=== PATIENT | female | born 1965 | race Caucasian/White ===

== ENCOUNTER → 2019-01-27 | Outpatient (CLI) | payer BC ==
--- NOTE | 2019-01-27 17:15 | MR ---
EXAMINATION TYPE: MR lumbar spine wo con DATE OF EXAM: 01/27/2019 COMPARISON: None HISTORY: Lumbago CONTRAST: 0 mL intravenous Gadavist. TECHNIQUE: Multiplanar, multisequence images of the lumbar spine were acquired. FINDINGS: L5-S1: There is a grade 1 spondylolisthesis of L5 anterior on S1. Disc space narrowing is present. Di sc desiccation is present. Disc uncovering has some central focal bulging with mild anterior thecal s ac compression. Disc uncovering has anterior thecal sac compression. No AP spinal canal stenosis is p resent. There is severe right foraminal stenosis with suspected impingement due to disc bulging. Mei re left foraminal stenosis is present likely with disc material contacting the exiting nerve root. L4-L5: Mild facet hypertrophy is present greater on the right with some posterior lateral thecal sac compression. Minimal disc bulge has anterior thecal sac contact. No AP spinal canal stenosis is prese nt. Neural foramen are patent. In the sagittal plane Schmorl's node formation may be developing withi n the inferior endplate compression and extension of disc material superiorly. There is signal abnorm ality within the vertebral body. Clinical consideration for early discitis is recommended. L3-L4: No significant disc bulge or disc herniation. No spinal canal stenosis. No foraminal stenosi s. L2-L3: No significant disc bulge or disc herniation. No spinal canal stenosis. No foraminal stenosi s. . L1-L2: No significant disc bulge or disc herniation. No spinal canal stenosis. No foraminal stenosi s. . T12-L1: No significant disc bulge or disc herniation. No spinal canal stenosis. No foraminal stenos is. . IMPRESSION: 1. Grade 1 spondylolisthesis with disc uncovering L5-S1. 2. The disc bulging at L5-S1 extends into the foramen with impingement of the exiting nerve root. Cor relate with the patient's clinical symptoms. 3. There are inferior endplate changes at L4. Findings appear to be related to Schmorl's node format ion with disc material. However, in the proper clinical setting, early infection associated with disc itis could be considered. Correlate with patient's symptoms and laboratory findings. A Yellow level critical message alert has been initiated for Gayathri Ruth DO via the [employer] Critical Results System on 01/27/2019 5:12 PM. This message alert has been sent to Gayathri lopez DO via the preferences provided by the clinician for the receipt of Radiology Critical Findings. Message ID [id number].
== END | disposition home or self-care (01) ==
LOC: RADMRIMAIN 07:12
PROVIDERS: ATTEND Family Medicine
DX: M51.26 Other intervertebral disc displacement, lumbar region (principal); M43.16 Spondylolisthesis, lumbar region; M25.80 Other specified joint disorders, unspecified joint
CPT/HCPCS: 72148

== ENCOUNTER 2022-07-17 14:53 | Emergency (ER) | payer BC ==
--- NOTE | 2022-07-17 16:41 | ED ---
Back Pain HPI - General Chief Complaint: Back Pain/Injury Stated Complaint: Back pain/post Fall Time Seen by Provider: 07/17/22 15:48 Source: patient, RN notes reviewed, old records reviewed Limitations: no limitations - History of Present Illness Initial Comments: 56-year-old female presents to the emergency room with complaints of low back pain sent by urgent care for a compression fracture of L1. Patient states that she slipped almost fell catching herself while twisting which caused the initial pain about 3 1/2 weeks ago. She did not see a doctor at time. She states it is progressively worse. She is able to ambulate. No bowel or bladder incontinence. Has been taking Advil intermittently for pain control. MD Complaint: back pain, back injury -: week(s) (3 2) Place: other (outdoors) Radiation: none Severity scale (1-10): 4 Quality: sharp Consistency: intermittent Worsens With: sitting upright Context: turning/twisting (slip and near fall, twisted to catch herself outdoor) Associated Symptoms: denies other symptoms Treatments Prior to Arrival: other (urgent care, xr and unknown shot) - Related Data Home Medications Medication Instructions Recorded Confirmed Ascorbic Acid [Vitamin C] 250 mg PO DAILY 07/17/22 07/17/22 Cetirizine HCl [Zyrtec] 10 mg PO DAILY PRN 07/17/22 07/17/22 Cholecalciferol [Vitamin D3 (10 10 mcg PO DAILY 07/17/22 07/17/22 Mcg = 400 Iu)] Elderberry Fruit and Flower [Black 1 tab PO DAILY 07/17/22 07/17/22 Elderberry 575 mg Cap] Ibuprofen [Advil] 200 mg PO Q6H PRN 07/17/22 07/17/22 Vitamin A 2,400 mcg PO DAILY 07/17/22 07/17/22 Previous Rx's Medication Instructions Recorded Lidocaine 5% Patch [Lidoderm] 1 patch TOPICAL DAILY 14 Days #14 07/17/22 patch Allergies Allergy/AdvReac Type Severity Reaction Status Date / Time Penicillins Allergy Unknown Verified 07/17/22 18:03 Review of Systems ROS Statement: Those systems with pertinent positive or pertinent negative responses have been documented in the HPI. ROS Other: All systems not noted in ROS Statement are negative. Past Medical History Past Medical History: No Reported History History of Any Multi-Drug Resistant Organisms: None Reported Past Surgical History: Cholecystectomy, Orthopedic Surgery Additional Past Surgical History / Comment(s): tubal , D&C Past Psychological History: No Psychological Hx Reported Smoking Status: Current some day smoker Past Alcohol Use History: None Reported Past Drug Use History: None Reported General Exam Limitations: no limitations General appearance: alert, in no apparent distress Head exam: Present: atraumatic Eye exam: Absent: scleral icterus, conjunctival injection, periorbital swelling ENT exam: Present: mucous membranes moist Neck exam: Absent: meningismus Respiratory exam: Absent: respiratory distress, accessory muscle use Cardiovascular Exam: Present: tachycardia Extremities exam: Present: full ROM, normal capillary refill. Absent: tenderness, pedal edema, calf tenderness Back exam: Present: tenderness (lumbar), vertebral tenderness (lumbar). Absent: CVA tenderness (R), CVA tenderness (L), muscle spasm, paraspinal tenderness, rash noted Expanded Back exam: Absent: saddle anesthesia Neurological exam: Present: alert, oriented X3, normal gait Psychiatric exam: Present: normal affect, normal mood Skin exam: Present: warm, dry, normal color. Absent: cyanosis, diaphoretic, petechiae, pallor Course Vital Signs 07/17/22 07/17/22 07/17/22 15:01 16:30 19:44 Temperature 98.4 F 98.2 F Pulse Rate 110 H 98 90 Respiratory 20 16 Rate Blood Pressure 111/71 110/87 112/86 O2 Sat by Pulse 96 97 Oximetry - Reevaluation(s) Reevaluation #1: 07/17/22 18:[address] Rios CT lumbar spine ordered to assess for multiple lumbar compression fractures seen on x-ray Time: 18:26 Medical Decision Making - Medical Decision Making X-ray lumbar spine shows multiple lumbar compression fracture is new compared to come our scan January 2019. Stable L5-S1 spondylolisthesis. CT lumbar spine shows multiple lumbar compression fractures new compared to exam 03/12/2010. Compression deformity of L1 vertebra 20% compression of the superior endplate. There is depression of the inferior endplate of L3 and L4 25%, and T11 wedging 25%. Radiologist indicates to confirm acute fracture MR scan recommended. Spoke with Dr. Contreras who recommended a lumbar corset follow-up with Dr. Adler on Tuesday. Lumbar corset prescription written. Patient sitting crosslegged on the cart, notified of CT were consults. Lidoderm patch applied. Prescription for Lidoderm patches given. She is agreeable to this plan of care. Strict return parameters were discussed for bowel or bladder incontinence or inability to ambulate. Case discussed with Dr. Rios. Disposition Clinical Impression: Lumbar compression fracture Disposition: HOME SELF-CARE Condition: Good Instructions (If sedation given, give patient instructions): Vertebral Compression Fracture (ED) Additional Instructions: Use lumbar corset as prescribed. Use Lidoderm patches for pain relief topically. Tylenol and or Motrin as needed for pain. Follow-up with Dr. Adler the orthopedics surgeon next week. Return to the emergency room with any new or concerning symptoms including increased pain, bowel or bladder incontinence. Prescriptions: Lidocaine 5% Patch [Lidoderm] 1 patch TOPICAL DAILY 14 Days #14 patch Is patient prescribed a controlled substance at d/c from ED?: No Referrals: Gayathri Ruth DO [Primary Care Provider] - 1-2 days Delbert Adler DO [Doctor of Osteopathic Medicine] - 1-2 days Time of Disposition: 19:34
[2022-07-17] MEDS ORDERED: LIDOCAINE 5% PATCH TOPICAL ONE (16:45)
--- NOTE | 2022-07-17 17:41 | XR ---
EXAMINATION TYPE: XR lumbosacral spine min 4V DATE OF EXAM: 07/17/2022 COMPARISON: MR scan 01/27/2019 HISTORY: Slip and fall TECHNIQUE: 5 views FINDINGS: The lumbar vertebrae show mild subluxation at L5-S1 of 5 mm. No definite spondylolysis. The re is disc space narrowing from L3 to S1. There is 15% wedging of L5 and L3. There is 25% wedging of L1 vertebra. There is mild depression of the inferior endplate of L4 without change. IMPRESSION: Multiple lumbar compression fractures. Fractures appear new compared to MR scan of 019. Stable L5-S1 spondylolisthesis.
--- NOTE | 2022-07-17 19:04 | CT ---
EXAMINATION TYPE: CT lumbar spine wo con DATE OF EXAM: 07/17/2022 COMPARISON: 03/12/2010 HISTORY: lower back pain CT DLP: 472.1 mGycm Automated exposure control for dose reduction was used. Images obtained from T12 to S2 vertebra with no contrast. The vertebral show L5 spondylolysis with a first-degree L5-S1 spondylolisthesis. There is narrowing o f the L5-S1 disc space. There is compression deformity of L1 vertebra 20% with the depression of the superior endplate. There is depression of the inferior endplate of L3 and L4 25%. There is T11 wedging 25%. There is no noarh ron mass. Sacroiliac joints are intact. IMPRESSION: Multiple lumbar compression fractures. Fractures appear new compared to old exam. If there is indicat ion to confirm an acute fracture then MR scan recommended.
[2022-07-17 19:45] VITALS: BP 112/86; PULSE 90; RESP 16; TEMP 98.2
== END 2022-07-17 19:50 | disposition home or self-care (01) ==
LOC: EC 14:53
DX: S32.009A Unspecified fracture of unspecified lumbar vertebra, initial encounter for closed fracture (principal); F17.200 Nicotine dependence, unspecified, uncomplicated; Z88.0 Allergy status to penicillin; W01.0XXA Fall on same level from slipping, tripping and stumbling without subsequent striking against object, initial encounter
CPT/HCPCS: 72110; 72131; 99284

== ENCOUNTER → 2022-08-04 | Outpatient (CLI) | payer BC ==
--- NOTE | 2022-08-04 12:49 | MR ---
EXAMINATION TYPE: MR lumbar spine wo con DATE OF EXAM: 08/04/2022 11:52 AM COMPARISON: 01/27/2019. CLINICAL INDICATION:Female, 57 years old with history of M48.061 M48.061 SPINAL STENOSIS, LUMBAR GARCÍA ON; TECHNIQUE: Multi planar, multi sequence imaging was performed utilizing: T1-weighted, T2-weighted, a nd turbo inversion recovery imaging of the lumbar spine. IV Contrast: None. FINDINGS: Alignment: Grade 1 anterolisthesis of L5 on S1 with bilateral spondylolysis. Cord: The conus medullaris and the distal spinal cord appear unremarkable with regards to their signa l intensity and morphology. Bones/Discs: There is curvilinear low T1 high inversion recovery signal within T11 most consistent wi th acute/subacute compression fracture. No evidence retropulsion. No spinal canal stenosis. The neura l foramen are patent. Additionally there are Schmorl's nodes at the superior endplate of L1 the infer ior patent of L3 and L4. Increased inversion recovery signal seen at the superior endplate of L1 and inferior end plate of L3 around Schmorl's nodes. There is mild reactive bony edema involving the supe rior endplate of L4 and L5. Mild edema seen along a curvilinear lucency in the superior endplate of L 5. T12-L1: No evidence of significant spinal canal stenosis or neural foraminal stenosis. L1-L2: No evidence of significant spinal canal stenosis. Facet joint arthropathy mild bilateral neura l foraminal stenosis. L2-L3: No evidence of significant spinal canal stenosis or neural foraminal stenosis. L3-L4: No evidence of significant spinal canal stenosis or neural foraminal stenosis. L4-L5: No evidence of significant spinal canal stenosis or neural foraminal stenosis. L5-S1: Disc uncovering from grade 1 anterolisthesis and facet joint arthropathy with mild spinal zeke l stenosis and moderate bilateral neural foraminal stenosis. Other findings: None. IMPRESSION: 1. Multilevel signs of vertebral body osseous edema which is new and has progressed from prior in 201 9. * Compression fracture of the T11 vertebral body without evidence for retropulsion or significant sp inal canal or neural foraminal stenosis. * Subacute L5 vertebral body superior endplate fracture suggested. * Acute Schmorl's nodes involving the superior endplate of L1 and inferior endplate of L3. 2. No evidence of significant spinal canal or neural foraminal stenosis. 3. Grade 1 anterolisthesis of L5 on S1 with moderate bilateral neural foraminal stenosis and bilatera l spondylolysis.
== END | disposition home or self-care (01) ==
LOC: RADMRIMAIN 11:03
PROVIDERS: ATTEND Nurse Practitioner Family
DX: M48.54XA Collapsed vertebra, not elsewhere classified, thoracic region, initial encounter for fracture (principal); M43.17 Spondylolisthesis, lumbosacral region; M51.46 Schmorl's nodes, lumbar region; M48.061 Spinal stenosis, lumbar region without neurogenic claudication; M47.817 Spondylosis without myelopathy or radiculopathy, lumbosacral region; R60.0 Localized edema
CPT/HCPCS: 72148

== ENCOUNTER → 2023-01-06 | Outpatient (CLI) | payer BC ==
[2023-01-06 21:47] LABS: Calcium 10.1 mg/dL (8.7-10.3)
[2023-01-07 12:03] LABS: Zinc, Serum 80 ug/dL (60-130)
== END | disposition home or self-care (01) ==
LOC: LABWHC1 10:50
PROVIDERS: ATTEND Physician Assistant
DX: Z51.81 Encounter for therapeutic drug level monitoring (principal)
CPT/HCPCS: 36415; 82306; 82310; 82525; 83735; 84630